=== PATIENT | male | born 1960 ===

== ENCOUNTER 2018-09-19 05:25 | Day surgery (SDC) | payer OTHER ==
[~2018-09-19 05:25] MED LIST: AMITRIPTYLINE H10 MG; CLONAZEPAM1 MG; CYMBALTA60 MG; DULOXETINE HCL30 MG; LAMOTRIGINE (BL25 MG
== END 2018-09-19 14:30 | disposition home or self-care (01) ==
LOC: CIR.AMB 05:25
DX: H72.02 Central perforation of tympanic membrane, left ear (principal); H61.812 Exostosis of left external canal